=== PATIENT | female | born 1990 | race Caucasian/White ===

== ENCOUNTER 2021-03-06 05:24 | Emergency (ER) | payer MEDICAID ==
[~2021-03-06] VITALS: Ht 170.2 cm; Wt 63.5 kg
--- NOTE | 2021-03-06 05:45 | NUR ---
PATIENT BIBSELF C/O NUMB LIP, LEFT ARM AND LEFT LEG PAIN, AFTER WAKING UP, STARTED AT 9PM. PATIENT IS A/O X 4, RR EVEN AND UNLABORED, NO SIGNS OF SOB NOTED. PATIENT IS CONNCETED TO [employer] AND POX.
[2021-03-06] MEDS ORDERED: IV NS 0.9% 1,000 ML BAG IV ONE (07:00)
[2021-03-06 08:06] LABS: BASOPHILS % (AUTO) 0.3 % (0.0-2.0); EOSINOPHILS % (AUTO) 0.6 % (0.0-6.0); HEMATOCRIT 35 % (33-45); LYMPHOCYTES # (AUTO) 1.1 K/uL (0.8-4.8); LYMPHOCYTES % (AUTO) 21.7 % (20.0-44.0); MEAN CORPUSCULAR HGB CONC 35 g/dl (31.0-36.0); MEAN CORPUSCULAR VOLUME 85 fL (82-100); MONOCYTES # (AUTO) 0.3 K/uL (0.1-1.30); MONOCYTES % (AUTO) 5.3 % (2.0-12.0); NEUTROPHILS # (AUTO) 3.8 K/uL (1.8-8.9); NEUTROPHILS % (AUTO) 72.1 % (43.0-81.0); PLATELET COUNT (AUTO) 221 K/uL (150-450); RED BLOOD CELL COUNT(AUTO) 4.06 MIL/uL (4.0-5.2); WHITE BLOOD COUNT (AUTO) 5.2 K/uL (4.3-11.0)
[2021-03-06 08:22] LABS: ALBUMIN 3.9 g/dL (3.4-5.0); BILIRUBIN,DIRECT 0.1 mg/dL (0.0-0.2); BILIRUBIN,TOTAL 0.3 mg/dL (0.2-1.0); CALCIUM, SERUM 8.8 mg/dL (8.5-10.1); CREATININE 0.7 mg/dL (0.6-1.3); POTASSIUM 3.6 mmol/L (3.5-5.1); TOTAL PROTEIN, SERUM 7.5 g/dL (6.4-8.2)
[2021-03-06 09:07] VITALS: BP 118/65
--- NOTE | 2021-03-06 09:07 | NUR ---
Patient discharged to home in stable condition. Written and verbal after care instructions given. Patient verbalizes understanding of instruction.IV removed. Catheter intact and site benign. Pressure and 4x4 applied to site. No bleeding noted.
== END 2021-03-06 09:07 | disposition home or self-care (01) ==
LOC: ER 05:33
DX: R20.2 Paresthesia of skin (principal); M79.662 Pain in left lower leg
CPT/HCPCS: 36415; 71045; 80048; 80076; 82962; 85025; 93005; 93971; 96360; 99285; J7030